=== PATIENT | female | born 1940 | race Caucasian/White ===

== ENCOUNTER 2022-02-14 14:24 | Inpatient (IN) | payer MEDICARE, MEDICAID ==
[2022-02-14] MEDS ORDERED: Ondansetron PF 4 MG/2 ML Vial IVP PRN (20:01)
[2022-02-14] MEDS: Acetaminophen 325 MG TAB PO PRN (20:39)
[2022-02-14] MEDS: Amoxicillin/Potassium Clav 875 MG TAB PO SCH (20:39)
[2022-02-14] MEDS: Albuterol 200 PUFF (6.7GM INHALER) INH SCH (20:48)
[2022-02-14] MEDS: Apixaban 5 MG TAB PO SCH (20:48)
[2022-02-14] MEDS: Ascorbic Acid 500 mg Chewable Tablet PO SCH (20:48)
[2022-02-14] MEDS ORDERED: Topiramate 25 MG TAB PO SCH (21:00)
[2022-02-14] MEDS: Gabapentin 100 MG CAP PO SCH (21:01)
[2022-02-15] MEDS: Albuterol 200 PUFF (6.7GM INHALER) INH SCH ×6 (01:16→20:51)
[2022-02-15] MEDS: Acetaminophen 325 MG TAB PO PRN ×4 (01:19→20:48)
[2022-02-15] MEDS ORDERED: Latanoprost 0.005% Ophth Soln 2.5 ml Bottle EA EYE SCH (09:00)
[2022-02-15] MEDS ORDERED: Furosemide 40 MG TAB PO SCH (09:00)
[2022-02-15] MEDS: valACYclovir 500 MG TAB PO SCH (09:46)
[2022-02-15] MEDS: Topiramate 25 MG TAB PO SCH ×2 (09:46→20:49)
[2022-02-15] MEDS: Rosuvastatin 10 MG TAB PO SCH (09:47)
[2022-02-15] MEDS: Amoxicillin/Potassium Clav 875 MG TAB PO SCH ×2 (09:47→20:47)
[2022-02-15] MEDS: Apixaban 5 MG TAB PO SCH ×2 (09:48→20:49)
[2022-02-15] MEDS: Lisinopril 20 MG TAB PO SCH (09:49)
[2022-02-15] MEDS: Carvedilol 6.25 MG TAB PO SCH ×2 (09:49→17:11)
[2022-02-15] MEDS: Potassium Chloride 10 MEQ TAB PO SCH (09:49)
[2022-02-15] MEDS: Famotidine 20 MG TAB PO SCH (09:49)
[2022-02-15] MEDS: Gabapentin 100 MG CAP PO SCH ×3 (09:50→20:53)
[2022-02-15] MEDS: Aspirin Chewable 81 MG TAB PO SCH (09:50)
[2022-02-15] MEDS: Furosemide 20 MG TAB PO SCH (09:50)
[2022-02-15] MEDS: Multivitamin W/ Minerals 1 TAB PO SCH (09:50)
[2022-02-15] MEDS: Ascorbic Acid 500 mg Chewable Tablet PO SCH ×2 (09:50→20:50)
[2022-02-15] MEDS: Mometasone/Formoterol 60 PUFF AER INH SCH ×2 (09:56→21:05)
[2022-02-15] MEDS: Nystatin Powder 15 GM BOT TOP PRN (20:54)
[2022-02-15] MEDS: Latanoprost 0.005% Ophth Soln 2.5 ml Bottle EA EYE SCH (20:56)
[2022-02-16] MEDS: Albuterol 200 PUFF (6.7GM INHALER) INH SCH ×6 (00:27→21:55)
[2022-02-16] MEDS: Ondansetron ODT 4 MG TAB PO PRN ×2 (05:54→10:48)
[2022-02-16 06:04] LABS: ALT (SGPT) 19 U/L (8-55); AST (SGOT) 18 U/L (5-34); Albumin 2.8 g/dL (3.4-4.8); Alkaline Phosphatase 88 U/L (40-110); Anion Gap 14 mmol/L (10-20); BUN (Urea Nitrogen) 25 mg/dL (9.8-20.1); Bilirubin, Total 0.5 mg/dL (0.2-1.2); Calc. Creatinine Clearance 63 mL/min (70-130); Calcium 8.7 mg/dL (7.8-10.44); Carbon Dioxide 22 mmol/L (23-31); Chloride 106 mmol/L (98-107); Globulin 2.8 g/dL (2.4-3.5); Glucose 106 mg/dL (83-110); Potassium 3.9 mmol/L (3.5-5.1); Protein, Total 5.6 g/dL (5.8-8.1); Sodium 138 mmol/L (136-145)
[2022-02-16 06:55] LABS: #Basophils 0.1 thou/uL (0.0-0.2); #Eosinphils 0.2 thou/uL (0.0-0.7); #Lymphocytes 1.3 thou/uL (1.20-3.40); #Monocytes 0.9 thou/uL (0.11-0.59); #Neutrophils 8.9 thou/uL (1.40-6.50); %Basophils 0.6 % (0.0-1.0); %Eosinophils 2.1 % (0.0-10.0); %Lymphocytes 11.8 % (21.0-51.0); %Monocytes 7.5 % (0.0-10.0); %Neutrophils 78.1 % (42.0-75.0); Anisocytosis SLIGHT = 6-15 cells (100X) (0-5/hpf); Burr Cells SLIGHT = 2-5 cells (100X) (0-1/hpf); Elliptocytes SLIGHT = 2-5 cells (100X) (0-1/hpf); Hemoglobin 9.8 g/dL (12.0-16.0); MDiff Complete? YES; Mean Corpuscular Hemoglobin 24.9 pg (27.0-31.0); Mean Corpuscular Volume 75.4 fL (78.0-98.0); Mean Platelet Volume 9.3 fL (7.4-10.4); Microcytosis SLIGHT = 6-15 cells (100X) (0-5/hpf); Platelet Count 310 thou/uL (130-400); Platelet Morphology Comment Appears Adequate; RBC Distribution Width 16.1 % (11.5-14.5); Red Blood Cell (RBC) Count 3.93 mill/uL (4.20-5.40); White Blood Cell (WBC) Count 11.4 thou/uL (4.8-10.8)
[2022-02-16] MEDS: Rosuvastatin 10 MG TAB PO SCH (08:26)
[2022-02-16] MEDS: Topiramate 25 MG TAB PO SCH ×2 (08:27→21:54)
[2022-02-16] MEDS: Furosemide 20 MG TAB PO SCH (08:28)
[2022-02-16] MEDS: valACYclovir 500 MG TAB PO SCH (08:28)
[2022-02-16] MEDS: Amoxicillin/Potassium Clav 875 MG TAB PO SCH ×2 (08:39→21:55)
[2022-02-16] MEDS: Gabapentin 100 MG CAP PO SCH ×3 (08:39→21:54)
[2022-02-16] MEDS: Aspirin Chewable 81 MG TAB PO SCH (08:41)
[2022-02-16] MEDS: Ascorbic Acid 500 mg Chewable Tablet PO SCH ×2 (08:41→21:55)
[2022-02-16] MEDS: Multivitamin W/ Minerals 1 TAB PO SCH (08:41)
[2022-02-16] MEDS: Potassium Chloride 10 MEQ TAB PO SCH (08:41)
[2022-02-16] MEDS: Famotidine 20 MG TAB PO SCH (08:42)
[2022-02-16] MEDS: Apixaban 5 MG TAB PO SCH ×2 (08:43→21:55)
[2022-02-16] MEDS: Carvedilol 6.25 MG TAB PO SCH ×3 (08:43→17:37)
[2022-02-16] MEDS: Lisinopril 20 MG TAB PO SCH ×2 (08:44)
[2022-02-16] MEDS: Mometasone/Formoterol 60 PUFF AER INH SCH ×2 (09:02→22:11)
[2022-02-16] MEDS: Acetaminophen 325 MG TAB PO PRN ×2 (09:06→21:53)
[2022-02-16] MEDS: Latanoprost 0.005% Ophth Soln 2.5 ml Bottle EA EYE SCH (21:55)
[2022-02-16] MEDS: Nystatin Powder 15 GM BOT TOP PRN (22:15)
[2022-02-17] MEDS: Albuterol 200 PUFF (6.7GM INHALER) INH SCH ×6 (01:37→21:27)
[2022-02-17] MEDS: Acetaminophen 325 MG TAB PO PRN ×3 (08:24→21:26)
[2022-02-17] MEDS: Rosuvastatin 10 MG TAB PO SCH (08:26)
[2022-02-17] MEDS: Famotidine 20 MG TAB PO SCH (08:28)
[2022-02-17] MEDS: Amoxicillin/Potassium Clav 875 MG TAB PO SCH ×2 (08:28→21:25)
[2022-02-17] MEDS: Ascorbic Acid 500 mg Chewable Tablet PO SCH ×2 (08:28→21:25)
[2022-02-17] MEDS: Lisinopril 20 MG TAB PO SCH ×2 (08:28→08:34)
[2022-02-17] MEDS: Gabapentin 100 MG CAP PO SCH ×3 (08:29→21:25)
[2022-02-17] MEDS: Furosemide 20 MG TAB PO SCH (08:29)
[2022-02-17] MEDS: valACYclovir 500 MG TAB PO SCH (08:29)
[2022-02-17] MEDS: Apixaban 5 MG TAB PO SCH ×2 (08:29→21:25)
[2022-02-17] MEDS: Aspirin Chewable 81 MG TAB PO SCH (08:29)
[2022-02-17] MEDS: Potassium Chloride 10 MEQ TAB PO SCH (08:29)
[2022-02-17] MEDS: Carvedilol 6.25 MG TAB PO SCH ×2 (08:30→17:37)
[2022-02-17] MEDS: Mometasone/Formoterol 60 PUFF AER INH SCH ×2 (08:32→21:28)
[2022-02-17] MEDS: Multivitamin W/ Minerals 1 TAB PO SCH (08:37)
[2022-02-17] MEDS: Topiramate 25 MG TAB PO SCH ×2 (08:38→21:25)
[2022-02-17] MEDS ORDERED: Sodium Chloride 0.9% 1,000 ML IV SCH (15:00)
[2022-02-17] MEDS: Nystatin Powder 15 GM BOT TOP PRN (21:26)
[2022-02-17] MEDS: Latanoprost 0.005% Ophth Soln 2.5 ml Bottle EA EYE SCH (21:27)
[2022-02-17] MEDS: Ondansetron ODT 4 MG TAB PO PRN (22:07)
[2022-02-18] MEDS: Albuterol 200 PUFF (6.7GM INHALER) INH SCH ×6 (01:29→21:52)
[2022-02-18] MEDS: Rosuvastatin 10 MG TAB PO SCH (08:36)
[2022-02-18] MEDS: Multivitamin W/ Minerals 1 TAB PO SCH (08:37)
[2022-02-18] MEDS: valACYclovir 500 MG TAB PO SCH (08:37)
[2022-02-18] MEDS: Ascorbic Acid 500 mg Chewable Tablet PO SCH ×3 (08:37→21:59)
[2022-02-18] MEDS: Apixaban 5 MG TAB PO SCH ×2 (08:38→21:50)
[2022-02-18] MEDS: Famotidine 20 MG TAB PO SCH (08:38)
[2022-02-18] MEDS: Gabapentin 100 MG CAP PO SCH ×3 (08:38→21:50)
[2022-02-18] MEDS: Amoxicillin/Potassium Clav 875 MG TAB PO SCH ×2 (08:38→21:50)
[2022-02-18] MEDS: Topiramate 25 MG TAB PO SCH ×2 (08:39→21:50)
[2022-02-18] MEDS: Furosemide 20 MG TAB PO SCH (08:40)
[2022-02-18] MEDS: Aspirin Chewable 81 MG TAB PO SCH (08:40)
[2022-02-18] MEDS: Potassium Chloride 10 MEQ TAB PO SCH (08:40)
[2022-02-18] MEDS: Lisinopril 20 MG TAB PO SCH (08:48)
[2022-02-18] MEDS: Carvedilol 6.25 MG TAB PO SCH ×2 (08:49→19:34)
[2022-02-18] MEDS: Mometasone/Formoterol 60 PUFF AER INH SCH ×2 (08:53→21:52)
[2022-02-18] MEDS: Acetaminophen 325 MG TAB PO PRN ×3 (10:18→21:51)
[2022-02-18] MEDS: Nystatin Powder 15 GM BOT TOP PRN (21:51)
[2022-02-18] MEDS: Latanoprost 0.005% Ophth Soln 2.5 ml Bottle EA EYE SCH (21:52)
[2022-02-19] MEDS: Albuterol 200 PUFF (6.7GM INHALER) INH SCH ×6 (01:31→21:09)
[2022-02-19 08:31] LABS: #Basophils 0.1 thou/uL (0.0-0.2); #Eosinphils 0.1 thou/uL (0.0-0.7); #Lymphocytes 1.3 thou/uL (1.20-3.40); #Monocytes 0.6 thou/uL (0.11-0.59); #Neutrophils 7.3 thou/uL (1.40-6.50); %Eosinophils 1.2 % (0.0-10.0); %Lymphocytes 14.2 % (21.0-51.0); %Monocytes 6.1 % (0.0-10.0); %Neutrophils 77.6 % (42.0-75.0); Hemoglobin 8.9 g/dL (12.0-16.0); Mean Corpuscular Hemoglobin 24.7 pg (27.0-31.0); Mean Corpuscular Volume 77.2 fL (78.0-98.0); Mean Platelet Volume 8.8 fL (7.4-10.4); Platelet Count 277 thou/uL (130-400); RBC Distribution Width 17.5 % (11.5-14.5); Red Blood Cell (RBC) Count 3.61 mill/uL (4.20-5.40); White Blood Cell (WBC) Count 9.4 thou/uL (4.8-10.8)
[2022-02-19 08:32] LABS: MDiff Complete? YES
[2022-02-19] MEDS: valACYclovir 500 MG TAB PO SCH (08:50)
[2022-02-19] MEDS: Rosuvastatin 10 MG TAB PO SCH (08:50)
[2022-02-19] MEDS: Gabapentin 100 MG CAP PO SCH ×3 (08:50→21:09)
[2022-02-19] MEDS: Acetaminophen 325 MG TAB PO PRN ×3 (08:52→21:08)
[2022-02-19] MEDS: Aspirin Chewable 81 MG TAB PO SCH (08:53)
[2022-02-19] MEDS: Famotidine 20 MG TAB PO SCH (08:53)
[2022-02-19] MEDS: Amoxicillin/Potassium Clav 875 MG TAB PO SCH ×2 (08:53→21:08)
[2022-02-19] MEDS: Topiramate 25 MG TAB PO SCH ×2 (08:53→21:08)
[2022-02-19] MEDS: Apixaban 5 MG TAB PO SCH ×2 (08:53→21:08)
[2022-02-19] MEDS: Multivitamin W/ Minerals 1 TAB PO SCH (08:54)
[2022-02-19] MEDS: Ascorbic Acid 500 mg Chewable Tablet PO SCH ×2 (08:54→21:08)
[2022-02-19] MEDS: Carvedilol 6.25 MG TAB PO SCH ×2 (08:54→17:23)
[2022-02-19] MEDS: Lisinopril 20 MG TAB PO SCH (08:55)
[2022-02-19] MEDS: Mometasone/Formoterol 60 PUFF AER INH SCH ×2 (08:59→21:10)
[2022-02-19] MEDS: Potassium Chloride 10 MEQ TAB PO SCH (09:06)
[2022-02-19] MEDS: Ondansetron ODT 4 MG TAB PO PRN (15:11)
[2022-02-19] MEDS: Latanoprost 0.005% Ophth Soln 2.5 ml Bottle EA EYE SCH (21:09)
[2022-02-19] MEDS: Nystatin Powder 15 GM BOT TOP PRN (21:19)
[2022-02-20] MEDS: Albuterol 200 PUFF (6.7GM INHALER) INH SCH ×6 (01:51→21:31)
[2022-02-20] MEDS: Rosuvastatin 10 MG TAB PO SCH (08:35)
[2022-02-20] MEDS: Gabapentin 100 MG CAP PO SCH ×3 (08:35→21:29)
[2022-02-20] MEDS: Furosemide 20 MG TAB PO SCH (08:37)
[2022-02-20] MEDS: Multivitamin W/ Minerals 1 TAB PO SCH (08:38)
[2022-02-20] MEDS: Amoxicillin/Potassium Clav 875 MG TAB PO SCH ×2 (08:38→21:28)
[2022-02-20] MEDS: valACYclovir 500 MG TAB PO SCH (08:38)
[2022-02-20] MEDS: Potassium Chloride 10 MEQ TAB PO SCH (08:38)
[2022-02-20] MEDS: Famotidine 20 MG TAB PO SCH (08:38)
[2022-02-20] MEDS: Aspirin Chewable 81 MG TAB PO SCH (08:38)
[2022-02-20] MEDS: Ascorbic Acid 500 mg Chewable Tablet PO SCH ×3 (08:42→21:41)
[2022-02-20] MEDS: Topiramate 25 MG TAB PO SCH ×2 (08:42→21:28)
[2022-02-20] MEDS: Apixaban 5 MG TAB PO SCH ×2 (08:42→21:28)
[2022-02-20] MEDS: Carvedilol 6.25 MG TAB PO SCH ×2 (08:47→17:47)
[2022-02-20] MEDS: Lisinopril 20 MG TAB PO SCH (08:48)
[2022-02-20] MEDS: Mometasone/Formoterol 60 PUFF AER INH SCH ×2 (08:49→21:31)
[2022-02-20] MEDS: Acetaminophen 325 MG TAB PO PRN ×2 (14:01→21:30)
[2022-02-20] MEDS: Latanoprost 0.005% Ophth Soln 2.5 ml Bottle EA EYE SCH (21:31)
[2022-02-21] MEDS: Albuterol 200 PUFF (6.7GM INHALER) INH SCH ×6 (02:21→21:12)
[2022-02-21] MEDS: Furosemide 20 MG TAB PO SCH (09:17)
[2022-02-21] MEDS: Multivitamin W/ Minerals 1 TAB PO SCH (09:17)
[2022-02-21] MEDS: Rosuvastatin 10 MG TAB PO SCH (09:17)
[2022-02-21] MEDS: Amoxicillin/Potassium Clav 875 MG TAB PO SCH ×2 (09:17→21:12)
[2022-02-21] MEDS: Apixaban 5 MG TAB PO SCH ×2 (09:17→21:12)
[2022-02-21] MEDS: Famotidine 20 MG TAB PO SCH (09:17)
[2022-02-21] MEDS: Topiramate 25 MG TAB PO SCH ×2 (09:18→21:12)
[2022-02-21] MEDS: Ascorbic Acid 500 mg Chewable Tablet PO SCH ×2 (09:18→21:12)
[2022-02-21] MEDS: Aspirin Chewable 81 MG TAB PO SCH (09:18)
[2022-02-21] MEDS: Gabapentin 100 MG CAP PO SCH ×3 (09:18→21:11)
[2022-02-21] MEDS: Carvedilol 6.25 MG TAB PO SCH ×2 (09:19→17:06)
[2022-02-21] MEDS: Potassium Chloride 10 MEQ TAB PO SCH (09:22)
[2022-02-21] MEDS: Lisinopril 20 MG TAB PO SCH (09:22)
[2022-02-21] MEDS: Acetaminophen 325 MG TAB PO PRN (09:24)
[2022-02-21] MEDS: Mometasone/Formoterol 60 PUFF AER INH SCH ×2 (09:27→21:13)
[2022-02-21] MEDS: Latanoprost 0.005% Ophth Soln 2.5 ml Bottle EA EYE SCH (21:12)
[2022-02-22] MEDS: Albuterol 200 PUFF (6.7GM INHALER) INH SCH ×6 (01:11→20:42)
[2022-02-22 05:34] LABS: #Basophils 0.1 thou/uL (0.0-0.2); #Eosinphils 0.1 thou/uL (0.0-0.7); #Lymphocytes 1.6 thou/uL (1.20-3.40); #Monocytes 0.5 thou/uL (0.11-0.59); #Neutrophils 4.5 thou/uL (1.40-6.50); %Basophils 1.5 % (0.0-1.0); %Eosinophils 1.8 % (0.0-10.0); %Lymphocytes 23.5 % (21.0-51.0); %Monocytes 7.1 % (0.0-10.0); %Neutrophils 66.1 % (42.0-75.0); Hemoglobin 8.9 g/dL (12.0-16.0); Mean Corpuscular HGB CONC 32.2 g/dL (32.0-36.0); Mean Corpuscular Hemoglobin 24.7 pg (27.0-31.0); Mean Corpuscular Volume 76.8 fL (78.0-98.0); Mean Platelet Volume 7.4 fL (7.4-10.4); Platelet Count 293 thou/uL (130-400); RBC Distribution Width 18.1 % (11.5-14.5); Red Blood Cell (RBC) Count 3.58 mill/uL (4.20-5.40); White Blood Cell (WBC) Count 6.7 thou/uL (4.8-10.8)
[2022-02-22 05:37] LABS: ALT (SGPT) 17 U/L (8-55); AST (SGOT) 13 U/L (5-34); Albumin 2.8 g/dL (3.4-4.8); Alkaline Phosphatase 78 U/L (40-110); Anion Gap 11 mmol/L (10-20); BUN (Urea Nitrogen) 12 mg/dL (9.8-20.1); Bilirubin, Total 0.3 mg/dL (0.2-1.2); Calc. Creatinine Clearance 72 mL/min (70-130); Calcium 9.2 mg/dL (7.8-10.44); Carbon Dioxide 24 mmol/L (23-31); Chloride 110 mmol/L (98-107); Glucose 107 mg/dL (83-110); Potassium 4.1 mmol/L (3.5-5.1); Protein, Total 5.8 g/dL (5.8-8.1); Sodium 141 mmol/L (136-145)
[2022-02-22 05:48] LABS: Hypochromia SLIGHT = 6-15 cells (100X) (0-5/hpf); MDiff Complete? YES; Microcytosis SLIGHT = 6-15 cells (100X) (0-5/hpf); Platelet Morphology Comment Appears Adequate; Poikilocytosis SLIGHT = 6-15 cells (100X) (0-5/hpf)
[2022-02-22] MEDS ORDERED: Carvedilol 3.125 MG TAB PO SCH (08:00)
[2022-02-22] MEDS: Rosuvastatin 10 MG TAB PO SCH (08:46)
[2022-02-22] MEDS: Acetaminophen 325 MG TAB PO PRN ×2 (08:46→13:05)
[2022-02-22] MEDS: Ascorbic Acid 500 mg Chewable Tablet PO SCH ×2 (08:46→20:42)
[2022-02-22] MEDS: Amoxicillin/Potassium Clav 875 MG TAB PO SCH ×2 (08:46→20:41)
[2022-02-22] MEDS: Topiramate 25 MG TAB PO SCH ×2 (08:47→20:41)
[2022-02-22] MEDS: Famotidine 20 MG TAB PO SCH (08:49)
[2022-02-22] MEDS: Aspirin Chewable 81 MG TAB PO SCH (08:49)
[2022-02-22] MEDS: Apixaban 5 MG TAB PO SCH ×2 (08:49→20:41)
[2022-02-22] MEDS: Potassium Chloride 10 MEQ TAB PO SCH (08:49)
[2022-02-22] MEDS: Multivitamin W/ Minerals 1 TAB PO SCH (08:49)
[2022-02-22] MEDS: Gabapentin 100 MG CAP PO SCH ×3 (08:49→20:42)
[2022-02-22] MEDS: Furosemide 20 MG TAB PO SCH (08:50)
[2022-02-22] MEDS: Lisinopril 20 MG TAB PO SCH (08:50)
[2022-02-22] MEDS: Mometasone/Formoterol 60 PUFF AER INH SCH ×2 (08:52→20:43)
[2022-02-22] MEDS ORDERED: Sodium Chloride 0.9% 500 ML IV SCH (10:00)
[2022-02-22] MEDS: Ferrous Sulfate 325 MG TAB PO SCH (17:15)
[2022-02-22] MEDS: Latanoprost 0.005% Ophth Soln 2.5 ml Bottle EA EYE SCH (20:43)
[2022-02-23] MEDS: Albuterol 200 PUFF (6.7GM INHALER) INH SCH ×6 (01:07→21:07)
[2022-02-23] MEDS ORDERED: Carvedilol 3.125 MG TAB PO SCH (08:00)
[2022-02-23] MEDS: Multivitamin W/ Minerals 1 TAB PO SCH (09:21)
[2022-02-23] MEDS: Ferrous Sulfate 325 MG TAB PO SCH ×2 (09:21→16:53)
[2022-02-23] MEDS: Amoxicillin/Potassium Clav 875 MG TAB PO SCH ×2 (09:21→21:05)
[2022-02-23] MEDS: Apixaban 5 MG TAB PO SCH ×2 (09:21→21:05)
[2022-02-23] MEDS: Rosuvastatin 10 MG TAB PO SCH (09:21)
[2022-02-23] MEDS: Aspirin Chewable 81 MG TAB PO SCH (09:21)
[2022-02-23] MEDS: Lisinopril 20 MG TAB PO SCH (09:23)
[2022-02-23] MEDS: Topiramate 25 MG TAB PO SCH ×2 (09:23→21:04)
[2022-02-23] MEDS: Potassium Chloride 10 MEQ TAB PO SCH (09:23)
[2022-02-23] MEDS: Furosemide 20 MG TAB PO SCH (09:23)
[2022-02-23] MEDS: Famotidine 20 MG TAB PO SCH (09:24)
[2022-02-23] MEDS: Gabapentin 100 MG CAP PO SCH ×3 (09:24→21:05)
[2022-02-23] MEDS: Ascorbic Acid 500 mg Chewable Tablet PO SCH ×2 (09:25→21:04)
[2022-02-23] MEDS: Mometasone/Formoterol 60 PUFF AER INH SCH ×2 (09:26→21:11)
[2022-02-23] MEDS: Acetaminophen 325 MG TAB PO PRN (09:37)
[2022-02-23] MEDS: Latanoprost 0.005% Ophth Soln 2.5 ml Bottle EA EYE SCH (21:08)
[2022-02-23] MEDS: Nystatin Powder 15 GM BOT TOP PRN (21:13)
[2022-02-24] MEDS: Albuterol 200 PUFF (6.7GM INHALER) INH SCH ×6 (01:42→21:53)
[2022-02-24] MEDS: Rosuvastatin 10 MG TAB PO SCH (08:42)
[2022-02-24] MEDS: Topiramate 25 MG TAB PO SCH ×2 (08:43→21:49)
[2022-02-24] MEDS: Gabapentin 100 MG CAP PO SCH ×3 (08:47→21:51)
[2022-02-24] MEDS: Amoxicillin/Potassium Clav 875 MG TAB PO SCH ×2 (08:59→21:51)
[2022-02-24] MEDS: Ferrous Sulfate 325 MG TAB PO SCH ×2 (08:59→17:35)
[2022-02-24] MEDS: Multivitamin W/ Minerals 1 TAB PO SCH (08:59)
[2022-02-24] MEDS: Potassium Chloride 10 MEQ TAB PO SCH (08:59)
[2022-02-24] MEDS: Lisinopril 20 MG TAB PO SCH (08:59)
[2022-02-24] MEDS: Furosemide 20 MG TAB PO SCH (09:03)
[2022-02-24] MEDS: Aspirin Chewable 81 MG TAB PO SCH (09:03)
[2022-02-24] MEDS: Ascorbic Acid 500 mg Chewable Tablet PO SCH ×2 (09:03→21:50)
[2022-02-24] MEDS: Apixaban 5 MG TAB PO SCH ×2 (09:03→21:49)
[2022-02-24] MEDS: Famotidine 20 MG TAB PO SCH (09:09)
[2022-02-24] MEDS: Mometasone/Formoterol 60 PUFF AER INH SCH ×2 (09:18→21:55)
[2022-02-24] MEDS: Ondansetron ODT 4 MG TAB PO PRN (10:38)
[2022-02-24] MEDS: Acetaminophen 325 MG TAB PO PRN (21:50)
[2022-02-24] MEDS: Latanoprost 0.005% Ophth Soln 2.5 ml Bottle EA EYE SCH (21:54)
[2022-02-24] MEDS: Nystatin Powder 15 GM BOT TOP PRN (21:54)
[2022-02-25] MEDS: Albuterol 200 PUFF (6.7GM INHALER) INH SCH ×6 (02:16→21:26)
[2022-02-25] MEDS: Ferrous Sulfate 325 MG TAB PO SCH ×2 (08:59→17:13)
[2022-02-25] MEDS: Apixaban 5 MG TAB PO SCH ×2 (08:59→21:24)
[2022-02-25] MEDS: Topiramate 25 MG TAB PO SCH ×2 (08:59→21:24)
[2022-02-25] MEDS: Gabapentin 100 MG CAP PO SCH ×3 (09:00→21:24)
[2022-02-25] MEDS: Lisinopril 20 MG TAB PO SCH (09:00)
[2022-02-25] MEDS: Rosuvastatin 10 MG TAB PO SCH (09:01)
[2022-02-25] MEDS: Potassium Chloride 10 MEQ TAB PO SCH (09:01)
[2022-02-25] MEDS: Famotidine 20 MG TAB PO SCH (09:01)
[2022-02-25] MEDS: Multivitamin W/ Minerals 1 TAB PO SCH (09:01)
[2022-02-25] MEDS: Aspirin Chewable 81 MG TAB PO SCH (09:02)
[2022-02-25] MEDS: Furosemide 20 MG TAB PO SCH (09:02)
[2022-02-25] MEDS: Ascorbic Acid 500 mg Chewable Tablet PO SCH ×2 (09:02→21:24)
[2022-02-25] MEDS: Mometasone/Formoterol 60 PUFF AER INH SCH ×2 (09:05→21:27)
[2022-02-25] MEDS: Acetaminophen 325 MG TAB PO PRN (21:25)
[2022-02-25] MEDS: Latanoprost 0.005% Ophth Soln 2.5 ml Bottle EA EYE SCH (21:26)
[2022-02-25] MEDS: Nystatin Powder 15 GM BOT TOP PRN (21:26)
[2022-02-26] MEDS: Acetaminophen 325 MG TAB PO PRN ×4 (00:34→22:04)
[2022-02-26] MEDS: Albuterol 200 PUFF (6.7GM INHALER) INH SCH ×6 (00:36→22:12)
[2022-02-26] MEDS: Rosuvastatin 10 MG TAB PO SCH (09:32)
[2022-02-26] MEDS: Gabapentin 100 MG CAP PO SCH ×3 (09:32→22:03)
[2022-02-26] MEDS: Topiramate 25 MG TAB PO SCH ×2 (09:33→22:03)
[2022-02-26] MEDS: Famotidine 20 MG TAB PO SCH (09:33)
[2022-02-26] MEDS: Aspirin Chewable 81 MG TAB PO SCH (09:33)
[2022-02-26] MEDS: Lisinopril 20 MG TAB PO SCH (09:33)
[2022-02-26] MEDS: Multivitamin W/ Minerals 1 TAB PO SCH (09:34)
[2022-02-26] MEDS: Ferrous Sulfate 325 MG TAB PO SCH ×2 (09:34→17:14)
[2022-02-26] MEDS: Apixaban 5 MG TAB PO SCH ×2 (09:34→22:02)
[2022-02-26] MEDS: Potassium Chloride 10 MEQ TAB PO SCH (09:34)
[2022-02-26] MEDS: Furosemide 20 MG TAB PO SCH (09:34)
[2022-02-26] MEDS: Ascorbic Acid 500 mg Chewable Tablet PO SCH ×2 (09:34→22:03)
[2022-02-26] MEDS: Guaifenesin DM 100-10/5 ML UDCUP PO PRN (09:35)
[2022-02-26] MEDS: Mometasone/Formoterol 60 PUFF AER INH SCH ×2 (09:37→22:09)
[2022-02-26] MEDS: Polyethylene Glycol 3350 17 GM Packet PO SCH (22:02)
[2022-02-26] MEDS: Latanoprost 0.005% Ophth Soln 2.5 ml Bottle EA EYE SCH (22:08)
[2022-02-26] MEDS: Nystatin Powder 15 GM BOT TOP PRN (22:08)
[2022-02-27] MEDS: Guaifenesin DM 100-10/5 ML UDCUP PO PRN (01:11)
[2022-02-27] MEDS: Albuterol 200 PUFF (6.7GM INHALER) INH SCH ×6 (01:12→21:03)
[2022-02-27] MEDS: Polyethylene Glycol 3350 17 GM Packet PO SCH (09:15)
[2022-02-27] MEDS: Rosuvastatin 10 MG TAB PO SCH (09:16)
[2022-02-27] MEDS: Aspirin Chewable 81 MG TAB PO SCH (09:16)
[2022-02-27] MEDS: Gabapentin 100 MG CAP PO SCH ×3 (09:17→21:01)
[2022-02-27] MEDS: Topiramate 25 MG TAB PO SCH ×2 (09:17→21:00)
[2022-02-27] MEDS: Lisinopril 20 MG TAB PO SCH (09:18)
[2022-02-27] MEDS: Acetaminophen 325 MG TAB PO PRN ×2 (09:18→21:02)
[2022-02-27] MEDS: Furosemide 20 MG TAB PO SCH (09:18)
[2022-02-27] MEDS: Apixaban 5 MG TAB PO SCH ×2 (09:18→21:01)
[2022-02-27] MEDS: Famotidine 20 MG TAB PO SCH (09:19)
[2022-02-27] MEDS: Multivitamin W/ Minerals 1 TAB PO SCH (09:19)
[2022-02-27] MEDS: Potassium Chloride 10 MEQ TAB PO SCH (09:19)
[2022-02-27] MEDS: Ascorbic Acid 500 mg Chewable Tablet PO SCH ×2 (09:19→21:01)
[2022-02-27] MEDS: Ferrous Sulfate 325 MG TAB PO SCH ×2 (09:19→17:30)
[2022-02-27] MEDS: Mometasone/Formoterol 60 PUFF AER INH SCH ×2 (09:25→21:04)
[2022-02-27] MEDS: Latanoprost 0.005% Ophth Soln 2.5 ml Bottle EA EYE SCH (21:02)
[2022-02-27] MEDS: Nystatin Powder 15 GM BOT TOP PRN (21:03)
[2022-02-28] MEDS: Albuterol 200 PUFF (6.7GM INHALER) INH SCH ×6 (02:03→20:44)
[2022-02-28] MEDS: Potassium Chloride 10 MEQ TAB PO SCH (08:51)
[2022-02-28] MEDS: Multivitamin W/ Minerals 1 TAB PO SCH (08:51)
[2022-02-28] MEDS: Polyethylene Glycol 3350 17 GM Packet PO SCH (08:51)
[2022-02-28] MEDS: Ascorbic Acid 500 mg Chewable Tablet PO SCH ×2 (08:51→20:42)
[2022-02-28] MEDS: Rosuvastatin 10 MG TAB PO SCH (08:51)
[2022-02-28] MEDS: Ferrous Sulfate 325 MG TAB PO SCH ×2 (08:51→17:26)
[2022-02-28] MEDS: Topiramate 25 MG TAB PO SCH ×2 (08:52→20:42)
[2022-02-28] MEDS: Apixaban 5 MG TAB PO SCH ×2 (08:52→20:42)
[2022-02-28] MEDS: Aspirin Chewable 81 MG TAB PO SCH (08:52)
[2022-02-28] MEDS: Famotidine 20 MG TAB PO SCH (08:52)
[2022-02-28] MEDS: Furosemide 20 MG TAB PO SCH (08:52)
[2022-02-28] MEDS: Lisinopril 20 MG TAB PO SCH (08:52)
[2022-02-28] MEDS: Acetaminophen 325 MG TAB PO PRN ×3 (08:53→20:48)
[2022-02-28] MEDS: Gabapentin 100 MG CAP PO SCH ×3 (08:53→20:42)
[2022-02-28] MEDS: Mometasone/Formoterol 60 PUFF AER INH SCH ×2 (09:38→20:45)
[2022-02-28] MEDS: Amoxicillin/Potassium Clav 875 MG TAB PO SCH (20:42)
[2022-02-28] MEDS: Nystatin Powder 15 GM BOT TOP PRN (20:43)
[2022-02-28] MEDS: Latanoprost 0.005% Ophth Soln 2.5 ml Bottle EA EYE SCH (20:44)
[2022-03-01] MEDS: Albuterol 200 PUFF (6.7GM INHALER) INH SCH ×6 (01:00→20:40)
[2022-03-01] MEDS: Multivitamin W/ Minerals 1 TAB PO SCH (12:17)
[2022-03-01] MEDS: Aspirin Chewable 81 MG TAB PO SCH (12:17)
[2022-03-01] MEDS: Apixaban 5 MG TAB PO SCH ×2 (12:17→20:39)
[2022-03-01] MEDS: Amoxicillin/Potassium Clav 875 MG TAB PO SCH ×2 (12:17→20:39)
[2022-03-01] MEDS: Rosuvastatin 10 MG TAB PO SCH (12:17)
[2022-03-01] MEDS: Ferrous Sulfate 325 MG TAB PO SCH ×2 (12:17→16:56)
[2022-03-01] MEDS: Lisinopril 20 MG TAB PO SCH (12:17)
[2022-03-01] MEDS: Furosemide 20 MG TAB PO SCH (12:18)
[2022-03-01] MEDS: Ascorbic Acid 500 mg Chewable Tablet PO SCH ×2 (12:18→20:38)
[2022-03-01] MEDS: Gabapentin 100 MG CAP PO SCH ×4 (12:18→20:39)
[2022-03-01] MEDS: Topiramate 25 MG TAB PO SCH ×2 (12:18→20:38)
[2022-03-01] MEDS: Potassium Chloride 10 MEQ TAB PO SCH (12:18)
[2022-03-01] MEDS: Acetaminophen 325 MG TAB PO PRN ×2 (12:19→18:12)
[2022-03-01] MEDS: Famotidine 20 MG TAB PO SCH (12:19)
[2022-03-01] MEDS: Polyethylene Glycol 3350 17 GM Packet PO SCH (12:25)
[2022-03-01] MEDS: Mometasone/Formoterol 60 PUFF AER INH SCH ×2 (12:25→20:40)
[2022-03-01] MEDS: traMADol HCl 50 MG TAB PO PRN (20:36)
[2022-03-01] MEDS: Oxybutynin 5 MG TAB PO PRN (20:38)
[2022-03-01] MEDS: Latanoprost 0.005% Ophth Soln 2.5 ml Bottle EA EYE SCH (20:41)
[2022-03-02] MEDS: Albuterol 200 PUFF (6.7GM INHALER) INH SCH ×6 (01:00→21:48)
[2022-03-02] MEDS: Rosuvastatin 10 MG TAB PO SCH (09:52)
[2022-03-02] MEDS: Amoxicillin/Potassium Clav 875 MG TAB PO SCH ×2 (09:52→21:46)
[2022-03-02] MEDS: Potassium Chloride 10 MEQ TAB PO SCH (09:53)
[2022-03-02] MEDS: Gabapentin 100 MG CAP PO SCH ×3 (09:53→21:47)
[2022-03-02] MEDS: Furosemide 20 MG TAB PO SCH (09:53)
[2022-03-02] MEDS: Topiramate 25 MG TAB PO SCH ×2 (09:54→21:46)
[2022-03-02] MEDS: Ferrous Sulfate 325 MG TAB PO SCH ×2 (09:55→18:01)
[2022-03-02] MEDS: Ascorbic Acid 500 mg Chewable Tablet PO SCH ×2 (09:55→21:47)
[2022-03-02] MEDS: Aspirin Chewable 81 MG TAB PO SCH (09:55)
[2022-03-02] MEDS: Famotidine 20 MG TAB PO SCH (09:55)
[2022-03-02] MEDS: Multivitamin W/ Minerals 1 TAB PO SCH (09:55)
[2022-03-02] MEDS: Polyethylene Glycol 3350 17 GM Packet PO SCH (09:56)
[2022-03-02] MEDS: Apixaban 5 MG TAB PO SCH ×2 (09:56→21:46)
[2022-03-02] MEDS: Lisinopril 20 MG TAB PO SCH (09:57)
[2022-03-02] MEDS: Mometasone/Formoterol 60 PUFF AER INH SCH ×2 (09:58→21:49)
[2022-03-02] MEDS: traMADol HCl 50 MG TAB PO PRN ×2 (10:53→18:00)
[2022-03-02] MEDS: Acetaminophen 325 MG TAB PO PRN (12:42)
[2022-03-02] MEDS: Oxybutynin 5 MG TAB PO PRN ×2 (12:43→18:02)
[2022-03-02] MEDS: Nystatin Powder 15 GM BOT TOP PRN (21:47)
[2022-03-02] MEDS: Latanoprost 0.005% Ophth Soln 2.5 ml Bottle EA EYE SCH (21:48)
[2022-03-03] MEDS: Albuterol 200 PUFF (6.7GM INHALER) INH SCH ×6 (01:00→21:59)
[2022-03-03 06:05] LABS: ALT (SGPT) 16 U/L (8-55); AST (SGOT) 16 U/L (5-34); Alkaline Phosphatase 82 U/L (40-110); Anion Gap 14 mmol/L (10-20); BUN (Urea Nitrogen) 12 mg/dL (9.8-20.1); Bilirubin, Total 0.6 mg/dL (0.2-1.2); Calc. Creatinine Clearance 71 mL/min (70-130); Calcium 8.8 mg/dL (7.8-10.44); Carbon Dioxide 23 mmol/L (23-31); Chloride 107 mmol/L (98-107); Estimated GFR 71; Globulin 2.8 g/dL (2.4-3.5); Glucose 102 mg/dL (83-110); Potassium 3.9 mmol/L (3.5-5.1); Protein, Total 5.8 g/dL (5.8-8.1); Sodium 140 mmol/L (136-145)
[2022-03-03 06:33] LABS: #Basophils 0.1 thou/uL (0.0-0.2); #Eosinphils 0.2 thou/uL (0.0-0.7); #Lymphocytes 0.8 thou/uL (1.20-3.40); #Monocytes 0.5 thou/uL (0.11-0.59); #Neutrophils 4.2 thou/uL (1.40-6.50); %Basophils 1.7 % (0.0-1.0); %Eosinophils 4.2 % (0.0-10.0); %Lymphocytes 13.9 % (21.0-51.0); %Monocytes 8.5 % (0.0-10.0); %Neutrophils 71.7 % (42.0-75.0); Hemoglobin 8.6 g/dL (12.0-16.0); Mean Corpuscular HGB CONC 30.7 g/dL (32.0-36.0); Mean Corpuscular Volume 84.5 fL (78.0-98.0); Mean Platelet Volume 8.4 fL (7.4-10.4); Platelet Count 183 thou/uL (130-400); White Blood Cell (WBC) Count 5.9 thou/uL (4.8-10.8)
[2022-03-03 06:59] LABS: Anisocytosis MODERATE=16-30 cells (100X) (0-5/hpf); MDiff Complete? YES; Macrocytosis SLIGHT = 6-15 cells (100X) (0-5/hpf); Microcytosis SLIGHT = 6-15 cells (100X) (0-5/hpf); Ovalocytes SLIGHT = 2-5 cells (100X) (0-1/hpf); Polychromasia SLIGHT = 2-3 cells (100X) (0-2/hpf); Rouleaux Formation SLIGHT = 1-5 cells (100X) (None Seen)
[2022-03-03] MEDS: Topiramate 25 MG TAB PO SCH ×2 (08:10→21:57)
[2022-03-03] MEDS: Gabapentin 100 MG CAP PO SCH ×3 (08:11→22:02)
[2022-03-03] MEDS: Ferrous Sulfate 325 MG TAB PO SCH ×2 (08:12→16:13)
[2022-03-03] MEDS: Famotidine 20 MG TAB PO SCH (08:12)
[2022-03-03] MEDS: traMADol HCl 50 MG TAB PO PRN (12:32)
[2022-03-03] MEDS: Amoxicillin/Potassium Clav 875 MG TAB PO SCH ×2 (12:38→21:58)
[2022-03-03] MEDS: Multivitamin W/ Minerals 1 TAB PO SCH (12:38)
[2022-03-03] MEDS: Ascorbic Acid 500 mg Chewable Tablet PO SCH ×2 (12:38→21:57)
[2022-03-03] MEDS: Apixaban 5 MG TAB PO SCH ×2 (12:38→21:58)
[2022-03-03] MEDS: Aspirin Chewable 81 MG TAB PO SCH (12:38)
[2022-03-03] MEDS: Lisinopril 20 MG TAB PO SCH (12:39)
[2022-03-03] MEDS: Potassium Chloride 10 MEQ TAB PO SCH (12:39)
[2022-03-03] MEDS: Polyethylene Glycol 3350 17 GM Packet PO SCH (12:46)
[2022-03-03] MEDS: Mometasone/Formoterol 60 PUFF AER INH SCH ×2 (12:46→22:00)
[2022-03-03] MEDS: Rosuvastatin 10 MG TAB PO SCH (12:46)
[2022-03-03] MEDS: Furosemide 20 MG TAB PO SCH (12:46)
[2022-03-03] MEDS: Acetaminophen 325 MG TAB PO PRN ×2 (13:09→21:58)
[2022-03-03] MEDS: Guaifenesin DM 100-10/5 ML UDCUP PO PRN ×2 (16:07→23:57)
[2022-03-03] MEDS: Oxybutynin 5 MG TAB PO PRN (16:07)
[2022-03-03] MEDS: Nystatin Powder 15 GM BOT TOP PRN (21:59)
[2022-03-03] MEDS: Latanoprost 0.005% Ophth Soln 2.5 ml Bottle EA EYE SCH (22:00)
[2022-03-04] MEDS: Albuterol 200 PUFF (6.7GM INHALER) INH SCH ×6 (02:23→20:29)
[2022-03-04] MEDS: Polyethylene Glycol 3350 17 GM Packet PO SCH (09:55)
[2022-03-04] MEDS: Topiramate 25 MG TAB PO SCH ×2 (09:55→20:27)
[2022-03-04] MEDS: Aspirin Chewable 81 MG TAB PO SCH (09:56)
[2022-03-04] MEDS: Amoxicillin/Potassium Clav 875 MG TAB PO SCH ×2 (09:56→20:27)
[2022-03-04] MEDS: Multivitamin W/ Minerals 1 TAB PO SCH (09:56)
[2022-03-04] MEDS: Famotidine 20 MG TAB PO SCH (09:56)
[2022-03-04] MEDS: Rosuvastatin 10 MG TAB PO SCH (09:56)
[2022-03-04] MEDS: Lisinopril 20 MG TAB PO SCH (09:57)
[2022-03-04] MEDS: Ascorbic Acid 500 mg Chewable Tablet PO SCH ×2 (10:01→20:27)
[2022-03-04] MEDS: Ferrous Sulfate 325 MG TAB PO SCH ×2 (10:01→17:44)
[2022-03-04] MEDS: Furosemide 20 MG TAB PO SCH (10:01)
[2022-03-04] MEDS: Gabapentin 100 MG CAP PO SCH ×3 (10:02→20:27)
[2022-03-04] MEDS: Apixaban 5 MG TAB PO SCH ×2 (10:02→20:27)
[2022-03-04] MEDS: Potassium Chloride 10 MEQ TAB PO SCH (10:02)
[2022-03-04] MEDS: Mometasone/Formoterol 60 PUFF AER INH SCH ×2 (10:03→20:30)
[2022-03-04] MEDS: Ondansetron ODT 4 MG TAB PO PRN (20:17)
[2022-03-04] MEDS: traMADol HCl 50 MG TAB PO PRN (20:28)
[2022-03-04] MEDS: Nystatin Powder 15 GM BOT TOP PRN (20:32)
[2022-03-04] MEDS: Latanoprost 0.005% Ophth Soln 2.5 ml Bottle EA EYE SCH (20:32)
[2022-03-04] MEDS: Guaifenesin DM 100-10/5 ML UDCUP PO PRN (20:48)
[2022-03-05] MEDS: Albuterol 200 PUFF (6.7GM INHALER) INH SCH ×6 (02:36→21:13)
[2022-03-05] MEDS: Rosuvastatin 10 MG TAB PO SCH (09:26)
[2022-03-05] MEDS: Ascorbic Acid 500 mg Chewable Tablet PO SCH ×2 (09:27→21:14)
[2022-03-05] MEDS: Amoxicillin/Potassium Clav 875 MG TAB PO SCH ×2 (09:27→21:10)
[2022-03-05] MEDS: Furosemide 20 MG TAB PO SCH (09:27)
[2022-03-05] MEDS: Topiramate 25 MG TAB PO SCH ×2 (09:27→21:10)
[2022-03-05] MEDS: Potassium Chloride 10 MEQ TAB PO SCH (09:28)
[2022-03-05] MEDS: Multivitamin W/ Minerals 1 TAB PO SCH (09:28)
[2022-03-05] MEDS: Apixaban 5 MG TAB PO SCH ×2 (09:28→21:11)
[2022-03-05] MEDS: Aspirin Chewable 81 MG TAB PO SCH (09:28)
[2022-03-05] MEDS: Ferrous Sulfate 325 MG TAB PO SCH ×2 (09:29→17:03)
[2022-03-05] MEDS: Gabapentin 100 MG CAP PO SCH ×3 (09:29→21:11)
[2022-03-05] MEDS: Famotidine 20 MG TAB PO SCH (09:30)
[2022-03-05] MEDS: Polyethylene Glycol 3350 17 GM Packet PO SCH (09:31)
[2022-03-05] MEDS: Lisinopril 20 MG TAB PO SCH (09:31)
[2022-03-05] MEDS: Mometasone/Formoterol 60 PUFF AER INH SCH ×2 (09:32→21:14)
[2022-03-05] MEDS: traMADol HCl 50 MG TAB PO PRN ×2 (09:39→21:18)
[2022-03-05] MEDS: Guaifenesin DM 100-10/5 ML UDCUP PO PRN (13:48)
[2022-03-05] MEDS: Acetaminophen 325 MG TAB PO PRN (14:49)
[2022-03-05] MEDS: Latanoprost 0.005% Ophth Soln 2.5 ml Bottle EA EYE SCH (21:12)
[2022-03-05] MEDS: Nystatin Powder 15 GM BOT TOP PRN (21:12)
[2022-03-06] MEDS: Albuterol 200 PUFF (6.7GM INHALER) INH SCH ×6 (02:10→20:58)
[2022-03-06] MEDS: Topiramate 25 MG TAB PO SCH ×2 (08:50→20:56)
[2022-03-06] MEDS: Gabapentin 100 MG CAP PO SCH ×3 (08:50→20:56)
[2022-03-06] MEDS: Multivitamin W/ Minerals 1 TAB PO SCH (08:51)
[2022-03-06] MEDS: Rosuvastatin 10 MG TAB PO SCH (08:51)
[2022-03-06] MEDS: Ascorbic Acid 500 mg Chewable Tablet PO SCH ×2 (08:52→20:56)
[2022-03-06] MEDS: Amoxicillin/Potassium Clav 875 MG TAB PO SCH ×2 (08:53→20:56)
[2022-03-06] MEDS: Ferrous Sulfate 325 MG TAB PO SCH ×2 (08:53→16:56)
[2022-03-06] MEDS: Aspirin Chewable 81 MG TAB PO SCH (08:53)
[2022-03-06] MEDS: Furosemide 20 MG TAB PO SCH (08:53)
[2022-03-06] MEDS: Potassium Chloride 10 MEQ TAB PO SCH (08:53)
[2022-03-06] MEDS: Apixaban 5 MG TAB PO SCH ×2 (08:54→20:56)
[2022-03-06] MEDS: Famotidine 20 MG TAB PO SCH (08:54)
[2022-03-06] MEDS: Lisinopril 20 MG TAB PO SCH (08:58)
[2022-03-06] MEDS: Mometasone/Formoterol 60 PUFF AER INH SCH ×2 (09:01→20:59)
[2022-03-06] MEDS: Polyethylene Glycol 3350 17 GM Packet PO SCH (09:09)
[2022-03-06] MEDS: traMADol HCl 50 MG TAB PO PRN ×2 (13:22→20:54)
[2022-03-06] MEDS: Nystatin Powder 15 GM BOT TOP PRN (20:57)
[2022-03-06] MEDS: Latanoprost 0.005% Ophth Soln 2.5 ml Bottle EA EYE SCH (20:58)
[2022-03-07] MEDS: Albuterol 200 PUFF (6.7GM INHALER) INH SCH ×6 (01:52→21:44)
[2022-03-07] MEDS: Rosuvastatin 10 MG TAB PO SCH (08:27)
[2022-03-07] MEDS: Multivitamin W/ Minerals 1 TAB PO SCH (08:27)
[2022-03-07] MEDS: Amoxicillin/Potassium Clav 875 MG TAB PO SCH ×2 (08:28→21:41)
[2022-03-07] MEDS: Aspirin Chewable 81 MG TAB PO SCH (08:28)
[2022-03-07] MEDS: Apixaban 5 MG TAB PO SCH ×2 (08:28→21:41)
[2022-03-07] MEDS: Furosemide 20 MG TAB PO SCH (08:28)
[2022-03-07] MEDS: Potassium Chloride 10 MEQ TAB PO SCH (08:29)
[2022-03-07] MEDS: Ferrous Sulfate 325 MG TAB PO SCH ×2 (08:29→17:18)
[2022-03-07] MEDS: Gabapentin 100 MG CAP PO SCH ×3 (08:29→21:41)
[2022-03-07] MEDS: Topiramate 25 MG TAB PO SCH ×2 (08:29→21:40)
[2022-03-07] MEDS: Ascorbic Acid 500 mg Chewable Tablet PO SCH ×2 (08:29→21:41)
[2022-03-07] MEDS: Famotidine 20 MG TAB PO SCH (08:29)
[2022-03-07] MEDS: Polyethylene Glycol 3350 17 GM Packet PO SCH (08:30)
[2022-03-07] MEDS: Lisinopril 20 MG TAB PO SCH (08:31)
[2022-03-07] MEDS: traMADol HCl 50 MG TAB PO PRN ×3 (08:33→21:45)
[2022-03-07] MEDS: Mometasone/Formoterol 60 PUFF AER INH SCH ×2 (08:34→21:45)
[2022-03-07] MEDS: Latanoprost 0.005% Ophth Soln 2.5 ml Bottle EA EYE SCH (21:43)
[2022-03-07] MEDS: Nystatin Powder 15 GM BOT TOP PRN (21:44)
[2022-03-08] MEDS: Albuterol 200 PUFF (6.7GM INHALER) INH SCH ×6 (01:57→21:13)
[2022-03-08 06:55] LABS: #Eosinphils 0.2 thou/uL (0.0-0.7); #Lymphocytes 0.9 thou/uL (1.20-3.40); #Monocytes 0.5 thou/uL (0.11-0.59); #Neutrophils 3.8 thou/uL (1.40-6.50); %Basophils 0.8 % (0.0-1.0); %Eosinophils 3.9 % (0.0-10.0); %Lymphocytes 17.1 % (21.0-51.0); %Monocytes 8.8 % (0.0-10.0); %Neutrophils 69.5 % (42.0-75.0); Anisocytosis SLIGHT = 6-15 cells (100X) (0-5/hpf); Hemoglobin 9.3 g/dL (12.0-16.0); MDiff Complete? YES; Macrocytosis SLIGHT = 6-15 cells (100X) (0-5/hpf); Mean Corpuscular HGB CONC 30.6 g/dL (32.0-36.0); Mean Corpuscular Hemoglobin 25.8 pg (27.0-31.0); Mean Corpuscular Volume 84.4 fL (78.0-98.0); Mean Platelet Volume 7.1 fL (7.4-10.4); Microcytosis SLIGHT = 6-15 cells (100X) (0-5/hpf); Ovalocytes SLIGHT = 2-5 cells (100X) (0-1/hpf); Platelet Count 218 thou/uL (130-400); Poikilocytosis SLIGHT = 6-15 cells (100X) (0-5/hpf); RBC Distribution Width 22.3 % (11.5-14.5); Red Blood Cell (RBC) Count 3.61 mill/uL (4.20-5.40); Schistocytes SLIGHT = 2-5 cells (100X) (0-1/hpf); Tear Drops SLIGHT = 2-5 cells (100X) (0-1/hpf); White Blood Cell (WBC) Count 5.5 thou/uL (4.8-10.8)
[2022-03-08] MEDS: Famotidine 20 MG TAB PO SCH (08:35)
[2022-03-08] MEDS: Rosuvastatin 10 MG TAB PO SCH (08:35)
[2022-03-08] MEDS: Topiramate 25 MG TAB PO SCH ×2 (08:36→21:11)
[2022-03-08] MEDS: Aspirin Chewable 81 MG TAB PO SCH (08:36)
[2022-03-08] MEDS: Apixaban 5 MG TAB PO SCH ×2 (08:36→21:11)
[2022-03-08] MEDS: Potassium Chloride 10 MEQ TAB PO SCH (08:36)
[2022-03-08] MEDS: Multivitamin W/ Minerals 1 TAB PO SCH (08:37)
[2022-03-08] MEDS: Polyethylene Glycol 3350 17 GM Packet PO SCH (08:37)
[2022-03-08] MEDS: Gabapentin 100 MG CAP PO SCH ×3 (08:37→21:11)
[2022-03-08] MEDS: Ferrous Sulfate 325 MG TAB PO SCH ×2 (08:37→17:29)
[2022-03-08] MEDS: Furosemide 20 MG TAB PO SCH (08:37)
[2022-03-08] MEDS: Amoxicillin/Potassium Clav 875 MG TAB PO SCH ×2 (08:38→21:13)
[2022-03-08] MEDS: Ascorbic Acid 500 mg Chewable Tablet PO SCH ×2 (08:38→21:11)
[2022-03-08] MEDS: Lisinopril 20 MG TAB PO SCH (08:50)
[2022-03-08] MEDS: Mometasone/Formoterol 60 PUFF AER INH SCH ×2 (08:51→21:14)
[2022-03-08] MEDS: traMADol HCl 50 MG TAB PO PRN ×2 (08:58→21:12)
[2022-03-08] MEDS: Ondansetron ODT 4 MG TAB PO PRN (09:53)
[2022-03-08] MEDS: Acetaminophen 325 MG TAB PO PRN (13:50)
[2022-03-08] MEDS: Latanoprost 0.005% Ophth Soln 2.5 ml Bottle EA EYE SCH (21:13)
[2022-03-08] MEDS: Nystatin Powder 15 GM BOT TOP PRN (21:13)
[2022-03-08 22:01] LABS: Bilirubin Large (Negative); Blood, Urine Large (Negative); Clarity Cloudy (Clear); Glucose, Urine (Dipstick) 100 mg/dL (Negative); Ketone, Urine 15 mg/dL (Negative); Leukocyte Large (Negative); Nitrite Negative (Negative); Protein, Urine (Dipstick) > or equal to 300 mg/dL (Neg-Trace); pH, Urine 5.5 (5.0-9.0)
[2022-03-08 22:08] LABS: RBC/HPF Greater than 50 HPF (0-3)
[2022-03-09] MEDS: Albuterol 200 PUFF (6.7GM INHALER) INH SCH ×5 (02:29→16:58)
[2022-03-09] MEDS ORDERED: Oxybutynin 5 MG TAB PO SCH ×2 (09:00→23:30)
[2022-03-09] MEDS: traMADol HCl 50 MG TAB PO PRN ×3 (09:15→23:55)
[2022-03-09] MEDS: Topiramate 25 MG TAB PO SCH (09:33)
[2022-03-09] MEDS: Furosemide 20 MG TAB PO SCH (09:33)
[2022-03-09] MEDS: Ferrous Sulfate 325 MG TAB PO SCH ×2 (09:35→16:45)
[2022-03-09] MEDS: Apixaban 5 MG TAB PO SCH (09:35)
[2022-03-09] MEDS: Rosuvastatin 10 MG TAB PO SCH (09:35)
[2022-03-09] MEDS: Famotidine 20 MG TAB PO SCH (09:35)
[2022-03-09] MEDS: Potassium Chloride 10 MEQ TAB PO SCH (09:36)
[2022-03-09] MEDS: Multivitamin W/ Minerals 1 TAB PO SCH (09:36)
[2022-03-09] MEDS: Gabapentin 100 MG CAP PO SCH ×3 (09:36→23:59)
[2022-03-09] MEDS: Polyethylene Glycol 3350 17 GM Packet PO SCH (09:37)
[2022-03-09] MEDS: Acetaminophen 325 MG TAB PO PRN ×3 (09:38→23:57)
[2022-03-09] MEDS: Aspirin Chewable 81 MG TAB PO SCH (09:38)
[2022-03-09] MEDS: Ascorbic Acid 500 mg Chewable Tablet PO SCH (09:38)
[2022-03-09] MEDS: Lisinopril 20 MG TAB PO SCH (09:40)
[2022-03-09] MEDS: Ondansetron ODT 4 MG TAB PO PRN (09:48)
[2022-03-09] MEDS: Mometasone/Formoterol 60 PUFF AER INH SCH (09:48)
[2022-03-09] MEDS: Oxybutynin 5 MG TAB PO SCH (09:49)
[2022-03-09 12:26] VITALS: BMI 26.9
[2022-03-09] MEDS ORDERED: Gabapentin 100 MG CAP PO SCH (23:30)
[2022-03-09] MEDS ORDERED: Ascorbic Acid 500 mg Chewable Tablet PO SCH (23:30)
[2022-03-09] MEDS ORDERED: Apixaban 5 MG TAB PO SCH (23:30)
[2022-03-09] MEDS ORDERED: Topiramate 25 MG TAB PO SCH (23:45)
[2022-03-10] MEDS: Ascorbic Acid 500 mg Chewable Tablet PO SCH ×3 (00:01→21:06)
[2022-03-10] MEDS: Apixaban 5 MG TAB PO SCH ×3 (00:01→21:06)
[2022-03-10] MEDS: Oxybutynin 5 MG TAB PO SCH ×3 (00:02→21:07)
[2022-03-10] MEDS: Topiramate 25 MG TAB PO SCH ×3 (00:02→21:07)
[2022-03-10] MEDS: Albuterol 200 PUFF (6.7GM INHALER) INH SCH ×7 (00:04→21:07)
[2022-03-10] MEDS: Latanoprost 0.005% Ophth Soln 2.5 ml Bottle EA EYE SCH ×2 (00:04→21:08)
[2022-03-10] MEDS: Mometasone/Formoterol 60 PUFF AER INH SCH ×3 (00:04→21:09)
[2022-03-10] MEDS: Famotidine 20 MG TAB PO SCH (08:23)
[2022-03-10] MEDS: Rosuvastatin 10 MG TAB PO SCH (08:23)
[2022-03-10] MEDS: Polyethylene Glycol 3350 17 GM Packet PO SCH (08:23)
[2022-03-10] MEDS: Aspirin Chewable 81 MG TAB PO SCH (08:25)
[2022-03-10] MEDS: Ferrous Sulfate 325 MG TAB PO SCH ×2 (08:25→16:47)
[2022-03-10] MEDS: Multivitamin W/ Minerals 1 TAB PO SCH (08:25)
[2022-03-10] MEDS: Furosemide 20 MG TAB PO SCH (08:26)
[2022-03-10] MEDS: Potassium Chloride 10 MEQ TAB PO SCH (08:26)
[2022-03-10] MEDS: Lisinopril 20 MG TAB PO SCH (08:27)
[2022-03-10] MEDS: Gabapentin 100 MG CAP PO SCH ×3 (08:33→21:06)
[2022-03-10] MEDS: Acetaminophen 325 MG TAB PO PRN ×2 (13:20→23:15)
[2022-03-10] MEDS: Guaifenesin DM 100-10/5 ML UDCUP PO PRN (13:57)
[2022-03-10] MEDS: traMADol HCl 50 MG TAB PO PRN (16:48)
[2022-03-10] MEDS: Nystatin Powder 15 GM BOT TOP PRN (21:08)
[2022-03-11] MEDS: Albuterol 200 PUFF (6.7GM INHALER) INH SCH ×6 (01:00→20:46)
[2022-03-11] MEDS: Rosuvastatin 10 MG TAB PO SCH (08:23)
[2022-03-11] MEDS: Topiramate 25 MG TAB PO SCH ×2 (08:23→20:46)
[2022-03-11] MEDS: Gabapentin 100 MG CAP PO SCH ×3 (08:24→20:47)
[2022-03-11] MEDS: Famotidine 20 MG TAB PO SCH (08:24)
[2022-03-11] MEDS: Potassium Chloride 10 MEQ TAB PO SCH (08:24)
[2022-03-11] MEDS: Lisinopril 20 MG TAB PO SCH (08:25)
[2022-03-11] MEDS: Multivitamin W/ Minerals 1 TAB PO SCH (08:25)
[2022-03-11] MEDS: Furosemide 20 MG TAB PO SCH (08:26)
[2022-03-11] MEDS: Aspirin Chewable 81 MG TAB PO SCH (08:26)
[2022-03-11] MEDS: Apixaban 5 MG TAB PO SCH ×2 (08:26→20:46)
[2022-03-11] MEDS: Ascorbic Acid 500 mg Chewable Tablet PO SCH ×2 (08:26→20:46)
[2022-03-11] MEDS: Oxybutynin 5 MG TAB PO SCH ×2 (08:26→20:46)
[2022-03-11] MEDS: Ferrous Sulfate 325 MG TAB PO SCH ×2 (08:26→17:03)
[2022-03-11] MEDS: Polyethylene Glycol 3350 17 GM Packet PO SCH (08:28)
[2022-03-11] MEDS: Mometasone/Formoterol 60 PUFF AER INH SCH ×2 (08:29→20:48)
[2022-03-11] MEDS: traMADol HCl 50 MG TAB PO PRN (08:50)
[2022-03-11] MEDS: Latanoprost 0.005% Ophth Soln 2.5 ml Bottle EA EYE SCH (20:46)
[2022-03-12] MEDS: Albuterol 200 PUFF (6.7GM INHALER) INH SCH ×6 (01:52→21:17)
[2022-03-12] MEDS: traMADol HCl 50 MG TAB PO PRN ×3 (09:19→21:31)
[2022-03-12] MEDS: Furosemide 20 MG TAB PO SCH (09:20)
[2022-03-12] MEDS: Ferrous Sulfate 325 MG TAB PO SCH ×2 (09:20→17:46)
[2022-03-12] MEDS: Famotidine 20 MG TAB PO SCH (09:20)
[2022-03-12] MEDS: Ascorbic Acid 500 mg Chewable Tablet PO SCH ×2 (09:21→21:15)
[2022-03-12] MEDS: Potassium Chloride 10 MEQ TAB PO SCH (09:21)
[2022-03-12] MEDS: Rosuvastatin 10 MG TAB PO SCH (09:21)
[2022-03-12] MEDS: Gabapentin 100 MG CAP PO SCH ×3 (09:21→21:14)
[2022-03-12] MEDS: Apixaban 5 MG TAB PO SCH ×2 (09:22→21:16)
[2022-03-12] MEDS: Aspirin Chewable 81 MG TAB PO SCH (09:22)
[2022-03-12] MEDS: Oxybutynin 5 MG TAB PO SCH ×2 (09:22→21:16)
[2022-03-12] MEDS: Multivitamin W/ Minerals 1 TAB PO SCH (09:23)
[2022-03-12] MEDS: Lisinopril 20 MG TAB PO SCH (09:23)
[2022-03-12] MEDS: Acetaminophen 325 MG TAB PO PRN ×2 (09:24→15:16)
[2022-03-12] MEDS: Topiramate 25 MG TAB PO SCH ×2 (09:24→21:15)
[2022-03-12] MEDS: Mometasone/Formoterol 60 PUFF AER INH SCH ×2 (09:25→21:18)
[2022-03-12] MEDS: Polyethylene Glycol 3350 17 GM Packet PO SCH (09:25)
[2022-03-12] MEDS: Guaifenesin DM 100-10/5 ML UDCUP PO PRN (11:43)
[2022-03-12] MEDS: Latanoprost 0.005% Ophth Soln 2.5 ml Bottle EA EYE SCH (21:16)
[2022-03-12] MEDS: Nystatin Powder 15 GM BOT TOP PRN (21:16)
[2022-03-13] MEDS: Albuterol 200 PUFF (6.7GM INHALER) INH SCH ×6 (01:00→22:00)
[2022-03-13] MEDS: traMADol HCl 50 MG TAB PO PRN ×2 (10:43→17:22)
[2022-03-13] MEDS: Topiramate 25 MG TAB PO SCH ×2 (10:44→21:59)
[2022-03-13] MEDS: Gabapentin 100 MG CAP PO SCH ×3 (10:44→21:59)
[2022-03-13] MEDS: Rosuvastatin 10 MG TAB PO SCH (10:45)
[2022-03-13] MEDS: Acetaminophen 325 MG TAB PO PRN ×3 (10:45→22:30)
[2022-03-13] MEDS: Potassium Chloride 10 MEQ TAB PO SCH (10:46)
[2022-03-13] MEDS: Ascorbic Acid 500 mg Chewable Tablet PO SCH ×2 (10:47→21:59)
[2022-03-13] MEDS: Multivitamin W/ Minerals 1 TAB PO SCH (10:47)
[2022-03-13] MEDS: Oxybutynin 5 MG TAB PO SCH ×2 (10:47→21:59)
[2022-03-13] MEDS: Apixaban 5 MG TAB PO SCH ×2 (10:47→21:59)
[2022-03-13] MEDS: Ferrous Sulfate 325 MG TAB PO SCH ×2 (10:47→17:22)
[2022-03-13] MEDS: Furosemide 20 MG TAB PO SCH (10:48)
[2022-03-13] MEDS: Famotidine 20 MG TAB PO SCH (10:48)
[2022-03-13] MEDS: Aspirin Chewable 81 MG TAB PO SCH (10:48)
[2022-03-13] MEDS: Lisinopril 20 MG TAB PO SCH (10:49)
[2022-03-13] MEDS: Mometasone/Formoterol 60 PUFF AER INH SCH ×2 (10:50→22:00)
[2022-03-13] MEDS: Polyethylene Glycol 3350 17 GM Packet PO SCH (10:50)
[2022-03-13] MEDS: Guaifenesin DM 100-10/5 ML UDCUP PO PRN (17:23)
[2022-03-13] MEDS: Cefdinir 300 MG CAP PO SCH (21:59)
[2022-03-13] MEDS: Nystatin Powder 15 GM BOT TOP PRN (22:00)
[2022-03-13] MEDS: Latanoprost 0.005% Ophth Soln 2.5 ml Bottle EA EYE SCH (22:00)
[2022-03-14] MEDS: Albuterol 200 PUFF (6.7GM INHALER) INH SCH ×6 (01:50→21:25)
[2022-03-14] MEDS: Polyethylene Glycol 3350 17 GM Packet PO SCH (09:15)
[2022-03-14] MEDS: traMADol HCl 50 MG TAB PO PRN ×2 (09:31→16:16)
[2022-03-14] MEDS: Acetaminophen 325 MG TAB PO PRN ×2 (09:32→16:15)
[2022-03-14] MEDS: Furosemide 20 MG TAB PO SCH (09:33)
[2022-03-14] MEDS: Lisinopril 20 MG TAB PO SCH (09:33)
[2022-03-14] MEDS: Gabapentin 100 MG CAP PO SCH ×3 (09:33→21:24)
[2022-03-14] MEDS: Cefdinir 300 MG CAP PO SCH ×2 (09:34→21:24)
[2022-03-14] MEDS: Famotidine 20 MG TAB PO SCH (09:34)
[2022-03-14] MEDS: Ascorbic Acid 500 mg Chewable Tablet PO SCH ×2 (09:34→21:25)
[2022-03-14] MEDS: Oxybutynin 5 MG TAB PO SCH ×2 (09:35→21:24)
[2022-03-14] MEDS: Aspirin Chewable 81 MG TAB PO SCH (09:35)
[2022-03-14] MEDS: Ferrous Sulfate 325 MG TAB PO SCH ×2 (09:35→16:14)
[2022-03-14] MEDS: Rosuvastatin 10 MG TAB PO SCH (09:36)
[2022-03-14] MEDS: Potassium Chloride 10 MEQ TAB PO SCH (09:36)
[2022-03-14] MEDS: Multivitamin W/ Minerals 1 TAB PO SCH (09:36)
[2022-03-14] MEDS: Apixaban 5 MG TAB PO SCH ×2 (09:36→21:25)
[2022-03-14] MEDS: Topiramate 25 MG TAB PO SCH ×2 (09:37→21:24)
[2022-03-14] MEDS: Mometasone/Formoterol 60 PUFF AER INH SCH ×2 (09:38→21:26)
[2022-03-14] MEDS: HYDROcodone/Acetaminophen 5/325 mg Tablet PO PRN (17:59)
[2022-03-14] MEDS: Latanoprost 0.005% Ophth Soln 2.5 ml Bottle EA EYE SCH (21:26)
[2022-03-15] MEDS: Albuterol 200 PUFF (6.7GM INHALER) INH SCH ×6 (01:00→21:17)
[2022-03-15] MEDS: Multivitamin W/ Minerals 1 TAB PO SCH (09:46)
[2022-03-15] MEDS: Topiramate 25 MG TAB PO SCH ×2 (09:46→21:16)
[2022-03-15] MEDS: Apixaban 5 MG TAB PO SCH ×2 (09:47→21:15)
[2022-03-15] MEDS: Potassium Chloride 10 MEQ TAB PO SCH ×2 (09:47→16:33)
[2022-03-15] MEDS: Aspirin Chewable 81 MG TAB PO SCH (09:47)
[2022-03-15] MEDS: Rosuvastatin 10 MG TAB PO SCH ×3 (09:47→21:17)
[2022-03-15] MEDS: Cefdinir 300 MG CAP PO SCH ×2 (09:47→21:16)
[2022-03-15] MEDS: Gabapentin 100 MG CAP PO SCH ×3 (09:48→21:15)
[2022-03-15] MEDS: Famotidine 20 MG TAB PO SCH (09:48)
[2022-03-15] MEDS: Lisinopril 20 MG TAB PO SCH ×2 (09:48→15:54)
[2022-03-15] MEDS: Furosemide 20 MG TAB PO SCH (09:49)
[2022-03-15] MEDS: Ascorbic Acid 500 mg Chewable Tablet PO SCH ×3 (09:49→21:17)
[2022-03-15] MEDS: Ferrous Sulfate 325 MG TAB PO SCH ×2 (09:49→15:51)
[2022-03-15] MEDS: Oxybutynin 5 MG TAB PO SCH ×2 (09:49→21:15)
[2022-03-15] MEDS: Polyethylene Glycol 3350 17 GM Packet PO SCH (09:50)
[2022-03-15] MEDS: Mometasone/Formoterol 60 PUFF AER INH SCH ×2 (09:50→21:18)
[2022-03-15] MEDS: HYDROcodone/Acetaminophen 5/325 mg Tablet PO PRN ×2 (11:19→17:37)
[2022-03-15] MEDS: Acetaminophen 325 MG TAB PO PRN (17:35)
[2022-03-15] MEDS: Latanoprost 0.005% Ophth Soln 2.5 ml Bottle EA EYE SCH (21:18)
[2022-03-15] MEDS: Nystatin Powder 15 GM BOT TOP PRN (21:29)
[2022-03-16] MEDS: Albuterol 200 PUFF (6.7GM INHALER) INH SCH ×6 (01:00→20:50)
[2022-03-16] MEDS: Ferrous Sulfate 325 MG TAB PO SCH ×2 (10:03→17:05)
[2022-03-16] MEDS: Potassium Chloride 10 MEQ TAB PO SCH (10:03)
[2022-03-16] MEDS: Gabapentin 100 MG CAP PO SCH ×3 (10:05→20:43)
[2022-03-16] MEDS: Acetaminophen 325 MG TAB PO PRN (10:06)
[2022-03-16] MEDS: Ascorbic Acid 500 mg Chewable Tablet PO SCH ×2 (10:06→20:44)
[2022-03-16] MEDS: Topiramate 25 MG TAB PO SCH ×2 (10:07→20:45)
[2022-03-16] MEDS: Apixaban 5 MG TAB PO SCH ×2 (10:08→20:42)
[2022-03-16] MEDS: Cefdinir 300 MG CAP PO SCH ×2 (10:08→20:42)
[2022-03-16] MEDS: Aspirin Chewable 81 MG TAB PO SCH (10:09)
[2022-03-16] MEDS: Oxybutynin ER 5 MG TAB PO SCH (10:09)
[2022-03-16] MEDS: Famotidine 20 MG TAB PO SCH (10:09)
[2022-03-16] MEDS: Furosemide 20 MG TAB PO SCH (10:09)
[2022-03-16] MEDS: Lisinopril 20 MG TAB PO SCH (10:11)
[2022-03-16] MEDS: Mometasone/Formoterol 60 PUFF AER INH SCH ×2 (10:11→20:47)
[2022-03-16] MEDS: Polyethylene Glycol 3350 17 GM Packet PO SCH (10:13)
[2022-03-16] MEDS: HYDROcodone/Acetaminophen 5/325 mg Tablet PO PRN (14:51)
[2022-03-16] MEDS: Rosuvastatin 10 MG TAB PO SCH (20:43)
[2022-03-16] MEDS: Latanoprost 0.005% Ophth Soln 2.5 ml Bottle EA EYE SCH (20:46)
[2022-03-17] MEDS: Albuterol 200 PUFF (6.7GM INHALER) INH SCH ×6 (00:59→21:35)
[2022-03-17 06:08] LABS: Hemoglobin 10.2 g/dL (12.0-16.0); Platelet Count 276 thou/uL (130-400)
[2022-03-17] MEDS: Polyethylene Glycol 3350 17 GM Packet PO SCH (09:30)
[2022-03-17] MEDS: Topiramate 25 MG TAB PO SCH ×2 (09:33→21:34)
[2022-03-17] MEDS: Oxybutynin ER 5 MG TAB PO SCH (09:34)
[2022-03-17] MEDS: Apixaban 5 MG TAB PO SCH ×2 (09:35→21:34)
[2022-03-17] MEDS: Lisinopril 20 MG TAB PO SCH (09:35)
[2022-03-17] MEDS: Aspirin Chewable 81 MG TAB PO SCH (09:35)
[2022-03-17] MEDS: Furosemide 20 MG TAB PO SCH (09:35)
[2022-03-17] MEDS: Potassium Chloride 10 MEQ TAB PO SCH (09:35)
[2022-03-17] MEDS: Famotidine 20 MG TAB PO SCH (09:36)
[2022-03-17] MEDS: Gabapentin 100 MG CAP PO SCH ×3 (09:36→21:34)
[2022-03-17] MEDS: Cefdinir 300 MG CAP PO SCH ×2 (09:36→21:34)
[2022-03-17] MEDS: Ascorbic Acid 500 mg Chewable Tablet PO SCH ×2 (09:36→21:34)
[2022-03-17] MEDS: Ferrous Sulfate 325 MG TAB PO SCH ×2 (09:37→16:10)
[2022-03-17] MEDS: Mometasone/Formoterol 60 PUFF AER INH SCH ×2 (09:38→21:36)
[2022-03-17] MEDS: HYDROcodone/Acetaminophen 5/325 mg Tablet PO PRN (12:53)
[2022-03-17] MEDS: Rosuvastatin 10 MG TAB PO SCH (21:34)
[2022-03-17] MEDS: Latanoprost 0.005% Ophth Soln 2.5 ml Bottle EA EYE SCH (21:35)
[2022-03-18] MEDS: Albuterol 200 PUFF (6.7GM INHALER) INH SCH ×6 (01:58→21:34)
[2022-03-18] MEDS: Oxybutynin ER 5 MG TAB PO SCH (09:45)
[2022-03-18] MEDS: Furosemide 20 MG TAB PO SCH (09:46)
[2022-03-18] MEDS: Topiramate 25 MG TAB PO SCH ×2 (09:46→21:33)
[2022-03-18] MEDS: Lisinopril 20 MG TAB PO SCH (09:46)
[2022-03-18] MEDS: Famotidine 20 MG TAB PO SCH (09:47)
[2022-03-18] MEDS: Potassium Chloride 10 MEQ TAB PO SCH (09:47)
[2022-03-18] MEDS: Ascorbic Acid 500 mg Chewable Tablet PO SCH ×2 (09:47→21:33)
[2022-03-18] MEDS: Apixaban 5 MG TAB PO SCH ×2 (09:47→21:35)
[2022-03-18] MEDS: Aspirin Chewable 81 MG TAB PO SCH (09:47)
[2022-03-18] MEDS: Ferrous Sulfate 325 MG TAB PO SCH ×2 (09:48→16:33)
[2022-03-18] MEDS: Cefdinir 300 MG CAP PO SCH ×2 (09:48→21:32)
[2022-03-18] MEDS: Gabapentin 100 MG CAP PO SCH ×3 (09:55→21:33)
[2022-03-18] MEDS: Mometasone/Formoterol 60 PUFF AER INH SCH ×2 (09:56→21:37)
[2022-03-18] MEDS: Polyethylene Glycol 3350 17 GM Packet PO SCH (09:56)
[2022-03-18 15:45] LABS: Anion Gap 12 mmol/L (10-20); BUN (Urea Nitrogen) 11 mg/dL (9.8-20.1); Calc. Creatinine Clearance 62 mL/min (70-130); Calcium 9.2 mg/dL (7.8-10.44); Carbon Dioxide 22 mmol/L (23-31); Chloride 109 mmol/L (98-107); Estimated GFR 76; Glucose 117 mg/dL (83-110); INR-International Normal Ratio 1.5; PTT 54.4 sec (22.9-36.1); Potassium 3.9 mmol/L (3.5-5.1); Prothrombin Time 18.6 sec (12.0-14.7); Sodium 139 mmol/L (136-145)
[2022-03-18 15:47] LABS: #Basophils 0.1 thou/uL (0.0-0.2); #Lymphocytes 0.8 thou/uL (1.20-3.40); #Monocytes 0.5 thou/uL (0.11-0.59); #Neutrophils 7.3 thou/uL (1.40-6.50); %Basophils 0.6 % (0.0-1.0); %Eosinophils 0.5 % (0.0-10.0); %Lymphocytes 8.9 % (21.0-51.0); %Monocytes 5.5 % (0.0-10.0); %Neutrophils 84.4 % (42.0-75.0); Hemoglobin 10.3 g/dL (12.0-16.0); Mean Corpuscular HGB CONC 30.6 g/dL (32.0-36.0); Mean Corpuscular Hemoglobin 26.2 pg (27.0-31.0); Mean Corpuscular Volume 85.8 fL (78.0-98.0); Mean Platelet Volume 7.5 fL (7.4-10.4); Platelet Count 279 thou/uL (130-400); RBC Distribution Width 20.5 % (11.5-14.5); Red Blood Cell (RBC) Count 3.91 mill/uL (4.20-5.40); White Blood Cell (WBC) Count 8.6 thou/uL (4.8-10.8)
[2022-03-18 15:49] LABS: MDiff Complete? YES
[2022-03-18] MEDS: HYDROcodone/Acetaminophen 5/325 mg Tablet PO PRN ×2 (16:31→21:40)
[2022-03-18] MEDS: Rosuvastatin 10 MG TAB PO SCH (21:32)
[2022-03-18] MEDS: Latanoprost 0.005% Ophth Soln 2.5 ml Bottle EA EYE SCH (21:35)
[2022-03-19] MEDS: Albuterol 200 PUFF (6.7GM INHALER) INH SCH ×6 (02:07→21:31)
[2022-03-19 09:31] LABS: Clarity Turbid (Clear)
[2022-03-19 09:32] LABS: Leukocyte Unable to Interpret (Negative); Specific Gravity, Urine 1.008 (1.002-1.036)
[2022-03-19 09:33] LABS: Bilirubin Unable to Interpret (Negative); Blood, Urine Unable to Interpret (Negative); Glucose, Urine (Dipstick) Unable to Interpret mg/dL (Negative); Ketone, Urine Unable to Interpret mg/dL (Negative); Nitrite Unable to Interpret (Negative); Protein, Urine (Dipstick) Unable to Interpret mg/dL (Neg-Trace); Urobilinogen UNABLE TO INTERPRET mg/dL (Less than 2)
[2022-03-19 09:38] LABS: RBC/HPF Greater than 50 HPF (0-3); Squamous Epithelial 0-3 HPF (0-3); WBC/HPF 0-3 HPF (0-3)
[2022-03-19 09:39] LABS: Bacteria/HPF 2+ HPF (None Seen); Mucous/LPF Few LPF (<2+)
[2022-03-19] MEDS: Topiramate 25 MG TAB PO SCH ×2 (10:23→21:02)
[2022-03-19] MEDS: Ferrous Sulfate 325 MG TAB PO SCH ×2 (10:23→17:22)
[2022-03-19] MEDS: Ascorbic Acid 500 mg Chewable Tablet PO SCH ×2 (10:25→21:03)
[2022-03-19] MEDS: Potassium Chloride 10 MEQ TAB PO SCH (10:25)
[2022-03-19] MEDS: Furosemide 20 MG TAB PO SCH (10:25)
[2022-03-19] MEDS: Oxybutynin ER 5 MG TAB PO SCH (10:27)
[2022-03-19] MEDS: Gabapentin 100 MG CAP PO SCH ×3 (10:27→21:03)
[2022-03-19] MEDS: Cefdinir 300 MG CAP PO SCH ×2 (10:27→21:03)
[2022-03-19] MEDS: Lisinopril 20 MG TAB PO SCH (10:28)
[2022-03-19] MEDS: Famotidine 20 MG TAB PO SCH (10:28)
[2022-03-19] MEDS: Mometasone/Formoterol 60 PUFF AER INH SCH ×2 (10:39→21:31)
[2022-03-19] MEDS: HYDROcodone/Acetaminophen 5/325 mg Tablet PO PRN ×2 (10:45→21:04)
[2022-03-19] MEDS: Polyethylene Glycol 3350 17 GM Packet PO SCH (10:49)
[2022-03-19] MEDS: traMADol HCl 50 MG TAB PO PRN (15:56)
[2022-03-19] MEDS: Acetaminophen 325 MG TAB PO PRN (17:33)
[2022-03-19] MEDS: Latanoprost 0.005% Ophth Soln 2.5 ml Bottle EA EYE SCH (21:02)
[2022-03-19] MEDS: Rosuvastatin 10 MG TAB PO SCH (21:02)
[2022-03-20] MEDS: Albuterol 200 PUFF (6.7GM INHALER) INH SCH ×6 (01:40→21:30)
[2022-03-20] MEDS: Potassium Chloride 10 MEQ TAB PO SCH (10:30)
[2022-03-20] MEDS: Topiramate 25 MG TAB PO SCH ×2 (10:31→20:20)
[2022-03-20] MEDS: Famotidine 20 MG TAB PO SCH (10:31)
[2022-03-20] MEDS: Cefdinir 300 MG CAP PO SCH ×2 (10:31→20:19)
[2022-03-20] MEDS: Ferrous Sulfate 325 MG TAB PO SCH ×2 (10:32→17:22)
[2022-03-20] MEDS: Ascorbic Acid 500 mg Chewable Tablet PO SCH ×2 (10:32→20:20)
[2022-03-20] MEDS: Lisinopril 20 MG TAB PO SCH (10:32)
[2022-03-20] MEDS: Oxybutynin ER 5 MG TAB PO SCH (10:32)
[2022-03-20] MEDS: Furosemide 20 MG TAB PO SCH (10:33)
[2022-03-20] MEDS: Gabapentin 100 MG CAP PO SCH ×3 (10:35→20:19)
[2022-03-20] MEDS: Mometasone/Formoterol 60 PUFF AER INH SCH ×2 (10:43→20:30)
[2022-03-20] MEDS: Polyethylene Glycol 3350 17 GM Packet PO SCH (10:44)
[2022-03-20] MEDS: HYDROcodone/Acetaminophen 5/325 mg Tablet PO PRN ×2 (10:48→20:18)
[2022-03-20] MEDS: traMADol HCl 50 MG TAB PO PRN (15:29)
[2022-03-20] MEDS: Rosuvastatin 10 MG TAB PO SCH (20:19)
[2022-03-20] MEDS: Latanoprost 0.005% Ophth Soln 2.5 ml Bottle EA EYE SCH (20:21)
[2022-03-21] MEDS: Albuterol 200 PUFF (6.7GM INHALER) INH SCH ×6 (00:10→20:39)
[2022-03-21] MEDS: Topiramate 25 MG TAB PO SCH ×2 (03:58→20:37)
[2022-03-21] MEDS: Famotidine 20 MG TAB PO SCH (03:58)
[2022-03-21] MEDS: Oxybutynin ER 5 MG TAB PO SCH (03:59)
[2022-03-21] MEDS: Cefdinir 300 MG CAP PO SCH ×2 (03:59→20:38)
[2022-03-21] MEDS: Mometasone/Formoterol 60 PUFF AER INH SCH ×2 (04:00→20:42)
[2022-03-21] MEDS: Gabapentin 100 MG CAP PO SCH ×3 (04:06→20:38)
[2022-03-21] MEDS: traMADol HCl 50 MG TAB PO PRN (18:03)
[2022-03-21] MEDS: Acetaminophen 325 MG TAB PO PRN (18:04)
[2022-03-21] MEDS: Rosuvastatin 10 MG TAB PO SCH (20:37)
[2022-03-21] MEDS: Latanoprost 0.005% Ophth Soln 2.5 ml Bottle EA EYE SCH (20:39)
[2022-03-21] MEDS: HYDROcodone/Acetaminophen 5/325 mg Tablet PO PRN (20:48)
[2022-03-21] MEDS ORDERED: traMADol HCl 50 MG TAB PO PRN (22:12)
[2022-03-22] MEDS: Albuterol 200 PUFF (6.7GM INHALER) INH SCH ×2 (01:46→05:00)
[2022-03-22] MEDS: HYDROcodone/Acetaminophen 5/325 mg Tablet PO PRN ×3 (04:27→16:41)
[2022-03-22] MEDS: Ciprofloxacin 500 MG TAB PO SCH ×2 (04:28→20:57)
[2022-03-22] MEDS: traMADol HCl 50 MG TAB PO PRN ×3 (05:05→21:01)
[2022-03-22] MEDS: Acetaminophen 325 MG TAB PO PRN ×2 (05:05→21:00)
[2022-03-22] MEDS ORDERED: Albuterol 200 PUFF (6.7GM INHALER) INH PRN (08:44)
[2022-03-22] MEDS ORDERED: Lisinopril 20 MG TAB PO SCH (09:00)
[2022-03-22] MEDS: Famotidine 20 MG TAB PO SCH (09:21)
[2022-03-22] MEDS: Ascorbic Acid 500 mg Chewable Tablet PO SCH ×2 (09:21→20:59)
[2022-03-22] MEDS: Furosemide 20 MG TAB PO SCH (09:22)
[2022-03-22] MEDS: Topiramate 25 MG TAB PO SCH ×2 (09:22→20:58)
[2022-03-22] MEDS: Gabapentin 100 MG CAP PO SCH ×3 (09:23→20:59)
[2022-03-22] MEDS: Ferrous Sulfate 325 MG TAB PO SCH ×2 (09:26→16:42)
[2022-03-22] MEDS: Oxybutynin ER 5 MG TAB PO SCH (09:26)
[2022-03-22] MEDS: Aspirin Chewable 81 MG TAB PO SCH (09:26)
[2022-03-22] MEDS: Potassium Bicarbonate/Cit Ac 20 MEQ TAB PO SCH (09:27)
[2022-03-22] MEDS: Lisinopril 20 MG TAB PO SCH (09:35)
[2022-03-22] MEDS: Rosuvastatin 10 MG TAB PO SCH (20:58)
[2022-03-22] MEDS: Latanoprost 0.005% Ophth Soln 2.5 ml Bottle EA EYE SCH (21:06)
[2022-03-23] MEDS: HYDROcodone/Acetaminophen 5/325 mg Tablet PO PRN ×3 (05:09→21:25)
[2022-03-23] MEDS: Ciprofloxacin 500 MG TAB PO SCH ×2 (05:57→21:24)
[2022-03-23] MEDS: Acetaminophen 325 MG TAB PO PRN (05:57)
[2022-03-23] MEDS: traMADol HCl 50 MG TAB PO PRN ×2 (05:57→16:56)
[2022-03-23] MEDS: Aspirin Chewable 81 MG TAB PO SCH (09:01)
[2022-03-23] MEDS: Potassium Bicarbonate/Cit Ac 20 MEQ TAB PO SCH (09:02)
[2022-03-23] MEDS: Oxybutynin ER 5 MG TAB PO SCH (09:03)
[2022-03-23] MEDS: Topiramate 25 MG TAB PO SCH ×2 (09:03→21:23)
[2022-03-23] MEDS: Ascorbic Acid 500 mg Chewable Tablet PO SCH ×2 (09:03→21:23)
[2022-03-23] MEDS: Ferrous Sulfate 325 MG TAB PO SCH ×2 (09:03→16:59)
[2022-03-23] MEDS: Furosemide 20 MG TAB PO SCH (09:03)
[2022-03-23] MEDS: Apixaban 5 MG TAB PO SCH ×2 (09:03→21:23)
[2022-03-23] MEDS: Famotidine 20 MG TAB PO SCH (09:04)
[2022-03-23] MEDS: Lisinopril 20 MG TAB PO SCH (09:04)
[2022-03-23] MEDS: Gabapentin 100 MG CAP PO SCH ×3 (09:05→21:24)
[2022-03-23] MEDS: Rosuvastatin 10 MG TAB PO SCH (21:23)
[2022-03-23] MEDS: Latanoprost 0.005% Ophth Soln 2.5 ml Bottle EA EYE SCH (21:25)
[2022-03-24] MEDS: traMADol HCl 50 MG TAB PO PRN ×2 (05:19→13:44)
[2022-03-24] MEDS: Ciprofloxacin 500 MG TAB PO SCH ×2 (05:27→21:03)
[2022-03-24] MEDS: HYDROcodone/Acetaminophen 5/325 mg Tablet PO PRN ×2 (08:43→21:04)
[2022-03-24] MEDS: Potassium Bicarbonate/Cit Ac 20 MEQ TAB PO SCH (08:44)
[2022-03-24] MEDS: Topiramate 25 MG TAB PO SCH ×2 (08:45→21:03)
[2022-03-24] MEDS: Apixaban 5 MG TAB PO SCH ×2 (08:45→21:03)
[2022-03-24] MEDS: Aspirin Chewable 81 MG TAB PO SCH (08:45)
[2022-03-24] MEDS: Famotidine 20 MG TAB PO SCH (08:46)
[2022-03-24] MEDS: Lisinopril 20 MG TAB PO SCH (08:46)
[2022-03-24] MEDS: Ferrous Sulfate 325 MG TAB PO SCH ×2 (08:46→17:00)
[2022-03-24] MEDS: Gabapentin 100 MG CAP PO SCH ×3 (08:47→21:03)
[2022-03-24] MEDS: Oxybutynin ER 5 MG TAB PO SCH (08:48)
[2022-03-24] MEDS: Ascorbic Acid 500 mg Chewable Tablet PO SCH ×2 (08:48→21:03)
[2022-03-24] MEDS: Furosemide 20 MG TAB PO SCH (08:48)
[2022-03-24] MEDS: Rosuvastatin 10 MG TAB PO SCH (21:03)
[2022-03-24] MEDS: Latanoprost 0.005% Ophth Soln 2.5 ml Bottle EA EYE SCH (21:06)
[2022-03-25] MEDS: Ciprofloxacin 500 MG TAB PO SCH (05:17)
[2022-03-25] MEDS: traMADol HCl 50 MG TAB PO PRN (05:51)
[2022-03-25] MEDS: Acetaminophen 325 MG TAB PO PRN (05:51)
[2022-03-25] MEDS: Potassium Bicarbonate/Cit Ac 20 MEQ TAB PO SCH (08:59)
[2022-03-25] MEDS: Topiramate 25 MG TAB PO SCH (09:06)
[2022-03-25] MEDS: Oxybutynin ER 5 MG TAB PO SCH (09:07)
[2022-03-25] MEDS: Gabapentin 100 MG CAP PO SCH ×2 (09:08→15:50)
[2022-03-25] MEDS: Furosemide 20 MG TAB PO SCH (09:10)
[2022-03-25] MEDS: Ascorbic Acid 500 mg Chewable Tablet PO SCH (09:10)
[2022-03-25] MEDS: Apixaban 5 MG TAB PO SCH (09:10)
[2022-03-25] MEDS: Ferrous Sulfate 325 MG TAB PO SCH ×2 (09:10→15:50)
[2022-03-25] MEDS: Lisinopril 20 MG TAB PO SCH (09:10)
[2022-03-25] MEDS: Famotidine 20 MG TAB PO SCH (09:10)
[2022-03-25] MEDS: Aspirin Chewable 81 MG TAB PO SCH (09:11)
[2022-03-25 18:09] VITALS: BP 100/73; TEMP 97.7
== END 2022-03-25 17:30 | disposition home health service (06) | DRG 871 ==
LOC: BURMED 18:25
PROVIDERS: ADMIT Family Medicine; ATTEND Family Medicine
DX: A41.9 Sepsis, unspecified organism (principal); R65.21 Severe sepsis with septic shock; J96.01 Acute respiratory failure with hypoxia; K81.0 Acute cholecystitis; N13.2 Hydronephrosis with renal and ureteral calculous obstruction; G25.81 Restless legs syndrome; I25.10 Atherosclerotic heart disease of native coronary artery without angina pectoris; Z66 Do not resuscitate; I73.9 Peripheral vascular disease, unspecified; E89.0 Postprocedural hypothyroidism; Z20.822 Contact with and (suspected) exposure to COVID-19; I48.91 Unspecified atrial fibrillation; B00.1 Herpesviral vesicular dermatitis; Z79.82 Long term (current) use of aspirin; Z79.899 Other long term (current) drug therapy; Z79.01 Long term (current) use of anticoagulants; Z95.5 Presence of coronary angioplasty implant and graft; Z90.710 Acquired absence of both cervix and uterus; Z87.891 Personal history of nicotine dependence; Z82.49 Family history of ischemic heart disease and other diseases of the circulatory system; Z82.5 Family history of asthma and other chronic lower respiratory diseases; Z88.8 Allergy status to other drugs, medicaments and biological substances
CPT/HCPCS: 36415; 36416; 71046; 80048; 80053; 81001; 85014; 85018; 85025; 85049; 85610; 85730; 86850; 86900; 86901; 87077; 87086; 87186; 94664; J7030; J7050; Q0162; U0003; U0005